=== PATIENT | female | born 1980 ===

== ENCOUNTER 2019-12-13 14:45 | Emergency (ER) | payer MEDICAID, OTHER ==
[2019-12-13 15:04] VITALS: BP 118/57
--- NOTE | 2019-12-13 16:18 | UC ---
Back Pain HPI - HPI Summary HPI Summary: 39-year-old woman comes with a chief complaint of low back pain. 2 days ago when she was picking up her [id number] son she had sudden onset of low back pain. Pain is worse with twisting turning bending. No urinary symptoms. She reports that about 10 days ago she had a UTI was treated with ciprofloxacin and the urinary tract infection symptoms have improved. The pain does not radiate down the legs. When the pain is at its worse it does feel like her legs want to give out but she has not had her legs give out. No loss of control of urine or bowels. She's had one other episode of low back pain about 3 years ago when she was treated with an injection which did help. She took Dexketoprofen 25 mg at 2 PM today. That has only given her minimal or no relief. No complaint of any abdominal pain or fever. No change in appetite urination or bowels. - History of Current Complaint Chief Complaint: UCBackPain Stated Complaint: BACK PAIN Time Seen by Provider: 12/13/19 14:51 Hx Last Menstrual Period: 11/22/19 Pain Intensity: 9 - Allergies/Home Medications Allergies/Adverse Reactions: Allergies Allergy/AdvReac Type Severity Reaction Status Date / Time No Known Allergies Allergy Verified 12/13/19 15:03 Home Medications: Home Medications Dexketoprofen 1 tab PO ONCE PRN 12/13/19 [History Confirmed 12/13/19] PMH/Surg Hx/FS Hx/Imm Hx Previously Healthy: Yes - Surgical History Surgical History: None Surgery Procedure, Year, and Place: - Family History Known Family History: Positive: Non-Contributory - Social History Alcohol Use: Occasionally Substance Use Type: None Smoking Status (MU): Never Smoked Tobacco Review of Systems All Other Systems Reviewed And Are Negative: Yes Constitutional: Positive: Negative Skin: Positive: Negative Eyes: Positive: Negative ENT: Positive: Negative Respiratory: Positive: Negative Cardiovascular: Positive: Negative Gastrointestinal: Positive: Negative Genitourinary: Positive: Negative Motor: Positive: Negative Neurovascular: Positive: Negative Musculoskeletal: Positive: Other: - see hpi Neurological: Positive: Negative Psychological: Positive: Negative Is Patient Immunocompromised?: No Physical Exam Triage Information Reviewed: Yes Appearance: Well-Appearing, Well-Nourished, Pain Distress - mild with rom Vital Signs: Initial Vital Signs Temp 98.6 F 12/13/19 14:55 Pulse 69 12/13/19 14:55 Resp 18 12/13/19 14:55 BP 118/57 12/13/19 14:55 Pulse Ox 96 12/13/19 14:55 Vital Signs Reviewed: Yes Eye Exam: Normal Eyes: Positive: Conjunctiva Clear Neck: Positive: Supple Respiratory: Positive: No respiratory distress Musculoskeletal: Positive: Other: - Patient indicates tenderness in the low Back. Legs have full range of motion and full strength. No sensation deficit. 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 She took 25 mg of Dexketoprofen at 2 PM today which is about an hour and a half ago. The dosing for Dexketoprofen is 25 mg every 8 hours. Therefore was unable to give the patient a Toradol injection. I recommended taking acetaminophen in addition to the nonsteroidal anti-inflammatory. Also sent a prescription for Flexeril. Patient is breast-feeding and therefore I recommended if she takes Flexeril to not breast feed for 8 hours. If the above treatments not helping she can return here for Toradol injection as long as she has not been taking nonsteroidal anti-inflammatories. Patient [facility] with [facility] or her primary care physician. Get reevaluated sooner if worse or any questions or concerns. - Differential Dx/Diagnosis Provider Diagnosis: Low back pain Discharge ED - Sign-Out/Discharge Documenting (check all that apply): Patient Departure All imaging exams completed and their final reports reviewed: No Studies - Discharge Plan Condition: Stable Disposition: HOME Prescriptions: Cyclobenzaprine TAB* [Flexeril 10 MG TAB*] 10 mg PO TID PRN #15 tab MDD 3 PRN Reason: Pain - Moderate Patient Education Materials: Acute Low Back Pain (ED) Referrals: [facility] [Outside] [facility] [Outside] Additional Instructions: FOLLOW UP WITH [facility] OR YOUR PRIMARY CARE DOCTOR IF NOT COMPLETELY IMPROVED. GET REEVALUATED SOONER HERE IN CLINIC IF NOT IMPROVED OR IN THE WORSE OR ANY QUESTIONS OR CONCERNS. - Billing Disposition and Condition Condition: STABLE Disposition: Home
== END 2019-12-13 16:30 | disposition home or self-care (01) ==
LOC: UCEAST 14:45
DX: M54.5 Low back pain (principal)
CPT/HCPCS: 99201; G0463